=== PATIENT | male | born 1965 | race American Indian/Alaskan Native ===

== ENCOUNTER 2017-04-02 15:48 | Emergency (ER) | payer MEDICAID ==
[2017-04-02] MEDS ORDERED: Dextrose 50% SYRINGE Inj (50 ml) IVP ONE (16:34)
--- NOTE | 2017-04-02 16:37 | ED PDOC ---
HPI: General Adult Time Seen by Provider: 04/02/17 16:34 Chief Complaint (Nursing): Abdominal Pain Chief Complaint (Provider): right groin pain History Per: Patient (51 y/o male h/o DM/coagulopathy/vascular disease s/p procedure right groin (balloon?) for dvt noted despite use on anticoagulants. Patient was d/c from [facility] 03/16. States he has had multiple procedures bilateral legs (fem-pop bypass) for vascular disease. IS on warfarin/eloquis/ plavix currently. Patient notes pain suddenly occurred when he was in car.) Past Medical History Reviewed: Historical Data, Nursing Documentation, Vital Signs Vital Signs: Last Vital Signs Temp 98 F 04/02/17 18:00 Pulse 74 04/02/17 18:00 Resp 20 04/02/17 18:00 BP 134/74 04/02/17 18:00 Pulse Ox 98 04/02/17 19:56 - Medical History PMH: Bronchitis, COPD, HTN - Family History Family History: States: No Known Family Hx - Immunization History Hx Tetanus Toxoid Vaccination: No Hx Influenza Vaccination: No Hx Pneumococcal Vaccination: No - Allergies Allergies/Adverse Reactions: Allergies Allergy/AdvReac Type Severity Reaction Status Date / Time No Known Allergies Allergy Verified 04/02/17 15:59 Review of Systems ROS Statement: Except As Marked, All Systems Reviewed And Found Negative Physical Exam - Reviewed Nursing Documentation Reviewed: Yes Vital Signs Reviewed: Yes - Physical Exam Appears: Positive for: Well, Non-toxic, No Acute Distress Head Exam: Positive for: ATRAUMATIC, NORMAL INSPECTION, NORMOCEPHALIC Skin: Positive for: Normal Color, Warm, DRY Eye Exam: Positive for: EOMI, Normal appearance, PERRL ENT: Positive for: Normal ENT Inspection Neck: Positive for: Normal, Painless ROM Cardiovascular/Chest: Positive for: Regular Rate, Rhythm Respiratory: Positive for: CNT, Normal Breath Sounds Gastrointestinal/Abdominal: Positive for: Normal Exam, Bowel Sounds, Soft Back: Positive for: Normal Inspection Extremity: Positive for: Tenderness (right groin/ no pulsatile mass; no bruit heard), Other (2+ pulse noted DP/PT) Neurologic/Psych: Positive for: Alert, Oriented - Laboratory Results Result Diagrams: 04/02/17 16:38 04/02/17 16:38 - ECG O2 Sat by Pulse Oximetry: 98 - Progress ED Course And Treament: PATIENT COMPLAINT OF CHEST PAIN WHILE IN ULTRASOUND. STATES HE NOTED CHEST PAIN AND LEFT ARM PAIN AT THAT TIME. NOW RESOLVED EKG: NSR NO ECTOPY NO ACUTE CHANGE REVIEWED BY MARIPOSA. ASA 324 MG X 1 DOSE CXR: NAD SEEN BY DR. BIANCHI IN ED. SHE WILL ADMIT UNDER HER CARE FOR EVALUATION OF CHEST PAIN/GROIN PAIN. CTA CHEST/ABD/PELVIS: PENDING DUPLEX ARTERIAL/VENOUS RIGHT LEG: WNL Disposition - Clinical Impression Clinical Impression: Leg pain, Chest pain - Patient ED Disposition Is Patient to be Admitted: Transfer of Care - Disposition Disposition: Transfer of Care Disposition Time: 19:57 Condition: FAIR Patient Signed Over To: Evans Rivers Handoff Comments: pending cta chest/abd/pelvis results
[2017-04-02 16:57] LABS: ALB/GLOB RATIO 1.5 (1.0-2.1); ALKALINE PHOSPHATASE 74 U/L (38-126); ALT/SGPT 72 U/L (21-72); AST/SGOT 42 U/L (17-59); BILIRUBIN,TOTAL 0.6 mg/dl (0.2-1.3); BLOOD UREA NITROGEN 15 mg/dl (9-20); CALCIUM 9.9 mg/dL (8.4-10.2); CARBON DIOXIDE 25 mmol/L (22-30); CHLORIDE 103 mmol/L (98-107); GFR AFRICAN-AMERICAN > 60; GLUCOSE,RANDOM 80 mg/dL (75-110); POTASSIUM 4.3 MMOL/L (3.6-5.0); SODIUM 139 mmol/l (132-148); TOTAL PROTEIN 7.8 G/DL (6.3-8.2)
[2017-04-02 17:02] LABS: BASO # 0.1 K/uL (0.0-0.2); BASO % 1.4 % (0.0-2.0); EOS # 0.1 K/uL (0.0-0.7); EOS % 1.4 % (0.0-4.0); HEMATOCRIT 45.2 % (35.0-51.0); LYMPH # 2.2 K/uL (1.0-4.3); LYMPH % 51.5 % (20.0-40.0); MEAN CELL VOLUME 88.8 fl (80.0-94.0); MEAN CORPUSCULAR HEMOGLOBIN 28.7 pg (27.0-31.0); MEAN CORPUSCULAR HGB CONC 32.3 g/dL (33.0-37.0); MONO # 0.6 K/uL (0.0-0.8); MONO % 14.4 % (0.0-10.0); NEUT # 1.3 K/uL (1.8-7.0); NEUT % 31.3 % (50.0-75.0); NRBC % 0.1 % (0.0-0.0); RED CELL DISTRIBUTION WIDTH 13.8 % (11.5-14.5); WHITE BLOOD COUNT 4.3 K/uL (4.8-10.8)
[2017-04-02 17:09] VITALS: O2SAT 98
--- NOTE | 2017-04-02 17:13 | US ---
Right lower extremity ultrasound. Indication: None available Technique: Duplex ultrasound evaluation of the right lower extremity Comparison: None available Findings: There is normal flow, compressibility, and augmentation of the right common femoral, femoral, and popliteal veins. The right posterior tibial vein was not adequately assessed. The technologist was unable to perform augmentation of the posterior tibial veins as the patient complained of severe chest pain radiating to his left arm in the examination was terminated. Impression: No evidence of deep venous thrombosis in the right lower extremity. The right posterior tibial vein was not adequately assessed. The technologist was unable to perform augmentation of the posterior tibial veins as the patient complained of severe chest pain radiating to his left arm in the examination was terminated. The tallier notified Dr. Longo of the patient's complaints immediately upon return to the ER.
--- NOTE | 2017-04-02 17:46 | RAD ---
HISTORY: CHEST PAIN COMPARISON: None available. TECHNIQUE: Chest, one view. FINDINGS: Multiple external wires and leads project over the chest. LUNGS: No focal consolidation. Please note that chest x-ray has limited sensitivity for the detection of pulmonary masses. PLEURA: No significant pleural effusion identified. No definite pneumothorax . CARDIOVASCULAR: Heart size appears within limits. OSSEOUS STRUCTURES: No acute osseous abnormality identified. VISUALIZED UPPER ABDOMEN: Unremarkable. OTHER FINDINGS: None. IMPRESSION: No focal consolidation, significant pleural effusion, or definite pneumothorax identified.
[2017-04-02] MEDS ORDERED: Sodium Chloride 0.9% 100 ML ONE (18:01)
[2017-04-02] MEDS ORDERED: Iodixanol 320 MG/ML 100 ML BOTTLE IV ONE (18:01)
[2017-04-02 18:51] VITALS: PULSE 74
[2017-04-02] MEDS ORDERED: Dextrose 50% SYRINGE Inj (50 ml) ONE (19:21)
--- NOTE | 2017-04-02 20:23 | CP.PCM.HP ---
History of Present Illness - History of Present Illness History of Present Illness: 51 yo gentleman with a long history of coagulopathy- thrombophilia was being evaluated in the ER for right groin pain when he developed left precordial chest pain radiating down the left arm. 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 He has had 7 procedures on the legs including stenting. Most recently he had balloon angioplasty and stenting of the right leg vasculature on 03/16/17. He is on multiple anticoagulants (see meds below). Aspirin was recently stopped due to rectal bleeding. He has been takin Percocet for leg pains. Vacscular care has been by Dr. Nancy Marin at [place], [place] [phone] DM - II - Hypertension COPD Other surgeries L lower arm fracture , L ankle fracture (ORIF) 2012. 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 Former smoker. No drugs or alcohol problems. Family Hx: One parent and 3 siblings of vascular disease. Present on Admission - Present on Admission Any Indicators Present on Admission: Yes History of DVT/PE: Yes History of Uncontrolled Diabetes: Yes Review of Systems - Review of Systems Systems not reviewed;Unavailable: Other Past Patient History - Past Social History Smoking Status: Former Smoker - CARDIAC Hx Hypertension: Yes - PULMONARY Hx Bronchitis: Yes Hx Chronic Obstructive Pulmonary Disease (COPD): Yes - ENDOCRINE/METABOLIC Hx Diabetes Mellitus Type 2: Yes - HEMATOLOGICAL/ONCOLOGICAL Hx Blood Disorders: Yes (See HPI) Other/Comment: dvt - PSYCHIATRIC Hx Substance Use: No - SURGICAL HISTORY Other/Comment: fem/pop bypass, angiogram, filter rt groin. - ANESTHESIA Hx Anesthesia: Yes Hx Anesthesia Reactions: No Meds Allergies/Adverse Reactions: Allergies Allergy/AdvReac Type Severity Reaction Status Date / Time cheese AdvReac NAUSEA Uncoded 04/02/17 20:30 Physical Exam - Constitutional Appears: No Acute Distress - Head Exam Head Exam: NORMAL INSPECTION - Eye Exam Eye Exam: Normal appearance - ENT Exam ENT Exam: Mucous Membranes Moist Additional comments: upper partial dentue - Neck Exam Neck exam: Positive for: Normal Inspection - Respiratory Exam Respiratory Exam: Clear to Auscultation Bilateral, NORMAL BREATHING PATTERN - Cardiovascular Exam Cardiovascular Exam: REGULAR RHYTHM, +S1, +S2 - GI/Abdominal Exam GI & Abdominal Exam: Soft - Rectal Exam Rectal Exam: Deferred - Exam Exam: Circumcision, NORMAL INSPECTION Additional comments: No testicular masses. - Extremities Exam Extremities exam: Positive for: normal inspection Additional comments: Tender nodularity right groin at arterio-venous triangle. No open lesions, no erythema. No calf tenderness. No edema. Pedal pulses are present right and left. - Back Exam Back exam: NORMAL INSPECTION - Neurological Exam Neurological exam: Alert, CN II-XII Intact, Oriented x3 - Psychiatric Exam Psychiatric exam: Normal Affect, Normal Mood - Skin Skin Exam: Dry, Normal Color, Warm Results - Vital Signs Recent Vital Signs: Last Vital Signs Temp 98 F 04/02/17 18:00 Pulse 74 04/02/17 18:00 Resp 20 04/02/17 18:00 BP 134/74 04/02/17 18:00 Pulse Ox 98 04/02/17 18:00 - Labs Result Diagrams: 04/02/17 16:38 04/02/17 16:38 Labs: Most Recent Lab Values WBC 4.3 K/uL (4.8-10.8) L 04/02/17 16:38 RBC 5.09 Mil/uL (4.40-5.90) 04/02/17 16:38 Hgb 14.6 g/dL (12.0-18.0) 04/02/17 16:38 Hct 45.2 % (35.0-51.0) 04/02/17 16:38 MCV 88.8 fl (80.0-94.0) 04/02/17 16:38 MCH 28.7 pg (27.0-31.0) 04/02/17 16:38 MCHC 32.3 g/dL (33.0-37.0) L 04/02/17 16:38 RDW 13.8 % (11.5-14.5) 04/02/17 16:38 Plt Count 200 K/uL (130-400) 04/02/17 16:38 MPV 10.0 fl (7.2-11.7) 04/02/17 16:38 Neut % (Auto) 31.3 % (50.0-75.0) L 04/02/17 16:38 Lymph % (Auto) 51.5 % (20.0-40.0) H 04/02/17 16:38 Newton % (Auto) 14.4 % (0.0-10.0) H 04/02/17 16:38 Eos % (Auto) 1.4 % (0.0-4.0) 04/02/17 16:38 Baso % (Auto) 1.4 % (0.0-2.0) 04/02/17 16:38 Neut # 1.3 K/uL (1.8-7.0) L 04/02/17 16:38 Lymph # 2.2 K/uL (1.0-4.3) 04/02/17 16:38 Newton # 0.6 K/uL (0.0-0.8) 04/02/17 16:38 Eos # 0.1 K/uL (0.0-0.7) 04/02/17 16:38 Baso # 0.1 K/uL (0.0-0.2) 04/02/17 16:38 PT 14.3 Seconds (9.8-13.1) H 04/02/17 16:38 INR 1.3 (0.9-1.2) H 04/02/17 16:38 APTT 42.0 Seconds (25.6-37.1) H 04/02/17 16:38 Sodium 139 mmol/l (132-148) 04/02/17 16:38 Potassium 4.3 MMOL/L (3.6-5.0) 04/02/17 16:38 Chloride 103 mmol/L (98-107) 04/02/17 16:38 Carbon Dioxide 25 mmol/L (22-30) 04/02/17 16:38 Anion Gap 15 (10-20) 04/02/17 16:38 BUN 15 mg/dl (9-20) 04/02/17 16:38 Creatinine 1.0 mg/dL (0.8-1.5) 04/02/17 16:38 Est GFR ( Amer) > 60 04/02/17 16:38 Est GFR (Non-Af Amer) > 60 04/02/17 16:38 Random Glucose 80 mg/dL (75-110) 04/02/17 16:38 Calcium 9.9 mg/dL (8.4-10.2) 04/02/17 16:38 Total Bilirubin 0.6 mg/dl (0.2-1.3) 04/02/17 16:38 AST 42 U/L (17-59) 04/02/17 16:38 ALT 72 U/L (21-72) 04/02/17 16:38 Alkaline Phosphatase 74 U/L (38-126) 04/02/17 16:38 Troponin I < 0.0120 ng/mL (0.00-0.120) 04/02/17 17:37 Total Protein 7.8 G/DL (6.3-8.2) 04/02/17 16:38 Albumin 4.6 g/dL (3.5-5.0) 04/02/17 16:38 Globulin 3.1 gm/dL (2.2-3.9) 04/02/17 16:38 Albumin/Globulin Ratio 1.5 (1.0-2.1) 04/02/17 16:38 - EKG Data EKG shows normal: Sinus rhythm, QRS complexes, ST-T waves Rate: Normal - Imaging and Cardiology Chest x-ray Status: Image reviewed by me (Normal) Venous US Status: Report reviewed by me (Arterial and venous ultrasounds show no obstruction or clots.) Additional comment: CT angiogram chest, abdomen, pelvis, upper legs done - reports pending. Assessment & Plan (1) Coagulopathy Assessment and Plan: THROMBOPHILIA WITH MULTIPLE VASCULAR COMPLICATIONS HEMATOLOGY CONSULTATION BY RAMY GUNN. Patient will be continued on anticoagulants while blood tests are being done. See orders. VASCULAR SURGICAL CONSULTATION BY DR. Marya WALKER Status: Acute (2) Hypertension Assessment and Plan: WILL CONTINUE USUAL MEDICATIONS. Status: Acute (3) Diabetes mellitus Assessment and Plan: Continue Glucophage 500 mg qam and start low dose insulin coverage. Status: Acute (4) Chest pain Assessment and Plan: NO evidence for CO at this time, but patient is at high risk. Will place on telemetry. CARDIOLOGY CONSULTATION DR. Madison TERRAZAS. (QV) Status: Acute (5) COPD (chronic obstructive pulmonary disease) Assessment and Plan: will give albuterol mdi prn. Status: Acute
--- NOTE | 2017-04-02 20:33 | CP.PCM.CON ---
History of Present Illness - History of Present Illness History of Present Illness: 51 year old male with a history of PAD s/p B/L LE bypass, DM, HTN, admitted with right groin pain with concern for arterial occlusion. The patient is taking plavix and coumadin. He noted to worsening right groin pain which was similar to prior clotting in the past. He notes he also has been having off and on chest pain. 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 Past medical history: PAD s/p B/L LE bypass, DM, HTN, asthma Past surgical history: B/L LE arterial bypass, ankle surgery. Family history: 2 brother, 1 sister with DVT/PE, mother had blood clot Social history: Former tobacco abuse, denies alcohol and illicit drug use. Allergies: NKDA Review of systems: All remaining review of systems including HEENT, cardiovascular, respiratory, gastrintestinal, genitourinary, musculoskeletal, dermatologic, neurologic, and psychiatric are negative unless mentioned in the HPI. Past Patient History - Past Social History Smoking Status: Former Smoker - CARDIAC Hx Hypertension: Yes - PULMONARY Hx Bronchitis: Yes Hx Chronic Obstructive Pulmonary Disease (COPD): Yes - ENDOCRINE/METABOLIC Hx Diabetes Mellitus Type 2: Yes - HEMATOLOGICAL/ONCOLOGICAL Hx Blood Disorders: Yes (See HPI) Other/Comment: dvt - PSYCHIATRIC Hx Substance Use: No - SURGICAL HISTORY Other/Comment: fem/pop bypass, angiogram, filter rt groin. - ANESTHESIA Hx Anesthesia: Yes Hx Anesthesia Reactions: No Meds Allergies/Adverse Reactions: Allergies Allergy/AdvReac Type Severity Reaction Status Date / Time cheese AdvReac NAUSEA Uncoded 04/02/17 20:30 Physical Exam - Head Exam Head Exam: ATRAUMATIC - Eye Exam Eye Exam: Normal appearance - ENT Exam ENT Exam: Mucous Membranes Dry - Respiratory Exam Respiratory Exam: NORMAL BREATHING PATTERN - Cardiovascular Exam Cardiovascular Exam: +S1, +S2 - GI/Abdominal Exam GI & Abdominal Exam: Normal Bowel Sounds - Extremities Exam Extremities exam: Positive for: pedal pulses present - Neurological Exam Neurological exam: Oriented x3 - Psychiatric Exam Psychiatric exam: Normal Affect, Normal Mood - Skin Skin Exam: Warm Results - Vital Signs Recent Vital Signs: Last Vital Signs Temp 98 F 04/02/17 18:00 Pulse 74 04/02/17 18:00 Resp 20 04/02/17 18:00 BP 134/74 04/02/17 18:00 Pulse Ox 98 04/02/17 20:07 - Labs Result Diagrams: 04/02/17 16:38 04/02/17 16:38 Assessment & Plan (1) Peripheral arterial disease Assessment and Plan: agree with aspirin, plavix therapeutic lovenox given subtherapeutic INR pt reports goal INR is 3.0; will redose coumadin 7.mg daily repeat INR in AM vascular surgery evaluation and CTA pending Status: Acute (2) Coagulopathy Assessment and Plan: secondary to anticoagulation rule out inherited thrombophilia given family history and age will check prothrombin gene mutation, factor V leiden mutation and antiphospholipid Ab panel Status: Acute (3) Leukopenia Assessment and Plan: likely benign Thank you for this interesting consult. Status: Acute
[2017-04-02] MEDS ORDERED: Enoxaparin 80 mg Syringe SC SCH (21:00)
--- NOTE | 2017-04-02 21:12 | ED PDOC ---
- Laboratory Results Result Diagrams: 04/02/17 16:38 04/02/17 16:38 - ECG O2 Sat by Pulse Oximetry: 98 - Progress ED Course And Treament: Signed out to me pending CT and US results at 1999. US duplex RUE arterial: No evidence of hemodynamically significant stenosis. CT Angiography Chest With Intravenous Contrast and CT Angiography Abdomen and Pelvis With Intravenous Contrast: No evidence of aortic aneurysm or dissection. Mild aneurysmal dilatation of the left popliteal artery. US duplex RLE vein: No DVT. These radiologic results were given to Dr. Donnelly who is currently in ED evaluating patient. Disposition - Clinical Impression Clinical Impression: Leg pain, Chest pain - POA Present On Arrival: None - Disposition Disposition: Admitted as In-Patient Disposition Time: 21:14 Condition: FAIR
[2017-04-02 21:22] VITALS: BP 139/76; RESP 15; TEMP 98.1
[2017-04-02] MEDS ORDERED: Oxycodone/Acetaminophen 5/325 mg Tab PO PRN (21:23)
[2017-04-02] MEDS ORDERED: Albuterol HFA 90 mcg/actuation (8 g) INH PRN (21:26)
[2017-04-02] MEDS ORDERED: Insulin Regular 100 units/ml SC SCH (23:00)
--- NOTE | 2017-04-03 08:43 | CARD ---
APPROVED REPORT EKG Measurement Heart [id number] <Conclusion> Normal sinus rhythm Normal ECG
--- NOTE | 2017-04-04 05:20 | HP ---
SUBJECTIVE: The patient is a 51-year-old male who was admitted via the emergency room for evaluation of chest pain. He originally was seen by Dr. Donnelly several hours prior to his presentation because of right groin pain and was discharged against medical advice because he did not want to stay. He, however, was brought back to the emergency room by police officers because of having multiple arrest warrants and he has been evaluated for chest pain prior to being taken to senior living. PAST MEDICAL HISTORY: He has a past medical history of thrombophilia with multiple coagulopathies and has had multiple stents placed in at different areas including the right groin which is where he has pain. Mostly recently he had a balloon angioplasty on 03/16/2017. Other medical history is remarkable for diabetes mellitus, hypertension, and COPD. He has a strong family history of thrombophilia in multiple family members. REVIEW OF SYSTEM: Remarkable for recurrent chest pains on and off for the past 2 years, multiple groin pains, and multiple pains in different extremities. 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 PHYSICAL EXAM: GENERAL: The patient is alert, oriented, appears much more comfortable this morning. He is handcuffed to the bed with the police captain senior standing guard. Denies chest pains or shortness of breath. VITAL SIGNS: Blood pressure 137/88, pulse of 66, respiratory rate 18. He is afebrile. O2 sat is 100% on room air. SKIN: Shows fair turgor. HEENT: Pupils equal, reactive to light and accommodation. Mouth shows fair hygiene. JVP flat. LUNGS: Clear. HEART: Regular, no murmurs or gallops. No chest wall tenderness. ABDOMEN: Soft, nontender. No organomegaly. EXTREMITIES: Show no edema or cyanosis, but some mild right groin tenderness. The patient has an ice packing placed over this. CENTRAL NERVOUS SYSTEM: Grossly intact. The patient is alert and oriented x3. LABORATORY DATA: WBC 5.0, hemoglobin 15.4, platelet count of 200,000. Troponin less than 0.012. EKG: Normal sinus rhythm. IMPRESSION: 1. Atypical chest pain. 2. Acute coronary syndrome. 3. History of thrombophilia with multiple stents and groin pains, which is chronic and related to recent angioplasty. 4. History of chronic obstructive pulmonary disease, stable. 5. History of diabetes mellitus and hypertension, stable. PLAN: Cardiac evaluation for clearance prior to being taken to senior living. Psychiatry evaluation also requested by the emergency room team. The patient will be discharged with the police captain senior back to the senior living once cleared by psychiatry and cardiology. Rick Perez MD
--- NOTE | 2017-04-04 09:03 | CT ---
PROCEDURE: CT Angiography Abdomen, and Pelvis with Contrast HISTORY: EVALUATE FOR PE/ PLEASE EVALUATE FOR RT GROIN PAIN COMPARISON: No prior CT or for comparison. Correlation is made with preliminary bilateral lower extremity arterial and venous ultrasound examination also dated 04/02/2017. TECHNIQUE: Technique: CT angiography of the abdomen, and pelvis was performed in the arterial phase of enhancement. Coronal and sagittal reformats, and well as rotating MIP images of the vessels generated at the workstation. Oral contrast was withheld as per referring physician request. Intravenous contrast dose: Visipaque-100 cc Radiation dose: Total exam DLP = 1369 mGy-cm. This CT exam was performed using one or more of the following dose reduction techniques: Automated exposure control, adjustment of the mA and/or kV according to patient size, and/or use of iterative reconstruction technique. FINDINGS: CT ANGIOGRAPHY: ABDOMINAL AORTA:: Appears normal in course caliber and contour with normal intraluminal enhancement. No evidence of aortic dissection or aneurysm. MAJOR AORTIC BRANCHES: Celiac Cardale: Unremarkable. Superior mesenteric artery: Unremarkable. Inferior mesenteric artery: Unremarkable. Renal arteries: Unremarkable. PELVIC ARTERIES: Right Common Iliac: Unremarkable. Right External Iliac: Unremarkable. Right Internal Iliac: Unremarkable. Left Common Iliac: Unremarkable. Left External Iliac: Unremarkable. Left Internal Iliac: Unremarkable. RIGHT LOWER EXTREMITY ARTERIES: Right Common Femoral: Unremarkable. Right Superficial Femoral: Unremarkable. Right Profunda Femoris: Unremarkable. Right Popliteal:Unremarkable. Right Anterior Tibial: Unremarkable. Right Tibioperoneal Trunk: Unremarkable. Right Posterior Tibial: Unremarkable. Right Peroneal: Unremarkable. Right dorsalis pedis : Unremarkable. LEFT LOWER EXTREMITY ARTERIES: Left Common Femoral: Unremarkable. Left Superficial Femoral: Unremarkable. Left Profunda Femoris: Unremarkable. Left Popliteal: Minimal aneurysmal dilatation, 12 mm. Left Anterior Tibial: Unremarkable to the lower tibial level. Left Tibioperoneal Trunk: Unremarkable. Left Posterior Tibial: Unremarkable. To the lower tibial level Left Peroneal: Unremarkable to the lower tibial level. Left Dorsalis pedis: Unremarkable not part of exam. NON-ANGIOGRAPHIC ASPECT OF THE EXAM: LOWER THORAX: Entire thorax was imaged. Limited bilateral basilar dependent atelectasis identified in trace emphysema is in the bilateral upper lobes. No infiltrate pneumothorax or central air rate lesion is appreciated. However, seen image 80 series 2 is a 3 mm posterior 3.2 mm noncalcified solid nodule at the right lower lobe laterally. A 2nd nodule is identified at the left side and at the left below left lower lobe and image 80 series 2 was also solid noncalcified but appears subpleural instead, measuring 3.5 mm. A 3rd nodule is questioned at the right middle lobe subpleural in location and also image 81 measuring 3.5 mm. There is no dominant mass throughout the chest. There is no significant lymphadenopathy. Cardiac size is normal and there is no pleural or pericardial effusion. The thoracic inlet appears unremarkable and there is a small hiatal hernia. LIVER: Unremarkable. No gross lesion or ductal dilatation. GALLBLADDER AND BILE DUCTS: Minimal cholelithiasis identified within the dependent gallbladder. No intrahepatic biliary dilatation. PANCREAS: Unremarkable. No gross lesion or ductal dilatation. SPLEEN: Unremarkable. ADRENALS: Unremarkable. No mass. KIDNEYS AND URETERS: Unremarkable. No hydronephrosis. No solid mass. STOMACH AND BOWEL: Unremarkable. No obstruction. No gross mural thickening. APPENDIX: Normal appendix. PERITONEUM: Unremarkable. No free fluid. No free air. LYMPH NODES: Unremarkable. No enlarged lymph nodes. BLADDER: Appears completely decompressed limiting evaluation of the wall. No pericystic reactive change. REPRODUCTIVE: Unremarkable. BONES: Small bone islands are seen in the right iliac crest as well as left femoral head. OTHER FINDINGS: None. IMPRESSION: 1. No CT evidence of pulmonary embolus. 2. Normal-appearing thoracoabdominal aorta. 3. 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 4. Three pulmonary nodules identified within the lungs for which follow-up chest is advised in 12 months demonstrate stability of this finding. 5. No acute cardiopulmonary, abdominal or pelvis findings as discussed above. 6. Cholelithiasis.
--- NOTE | 2017-04-04 14:39 | US ---
PROCEDURE: Duplex ultrasound of the right lower extremity arteries. HISTORY: leg pain COMPARISON: None available. TECHNIQUE: Grayscale and duplex Doppler evaluation of the right common femoral, superficial femoral, popliteal, posterior tibial and dorsalis pedis arteries was performed.. FINDINGS: COMMON FEMORAL ARTERY: Patent. Maximal flow velocity of 101.8 cm/s. SUPERFICIAL FEMORAL ARTERY:Patent. Maximal flow velocity of 103.6 cm/s. POPLITEAL ARTERY:Patent. Maximal flow velocity of 30.8 cm/s. POSTERIOR TIBIAL ARTERY: Patent. Maximal flow velocity of 41.6 cm/s. DORSALIS PEDIS ARTERY: Patent. Maximal flow velocity of 22.7 cm/s. OTHER FINDINGS: None. IMPRESSION: No evidence of hemodynamically significant stenoses. Concordant results (preliminary interpretation) provided by [facility]. Procedure Completed: 18:05. Preliminary ([facility]) Report: Dictated and Authenticated: 19:55. Final Interpretation: 14:37. April 03, 2017.
== END 2017-04-02 22:15 | disposition left against medical advice (07) ==
LOC: H.ER 15:48 → UNDOADMIN 19:40 → H.ERHOLD 19:40 → UNDODISIN 22:15
DX: R07.9 Chest pain, unspecified (principal); M79.609 Pain in unspecified limb; E11.9 Type 2 diabetes mellitus without complications; I10 Essential (primary) hypertension; I99.9 Unspecified disorder of circulatory system; D68.9 Coagulation defect, unspecified

== ENCOUNTER 2017-04-02 23:45 | Observation (INO) | payer MEDICAID ==
--- NOTE | 2017-04-03 00:07 | ED PDOC ---
HPI: General Adult Chief Complaint (Nursing): Medical Clearance Additional Complaint(s): 51M brought in by [employer] police after police were informed by significant other that patient had an outstanding warrant. Patient then had c/o dizziness and was brought in by the police for medical and psych clearance. Of note, patient signed out AMA approximately an hour earlier and had been seen by Dr Donnelly who felt patient should be admitted to Telemetry and further evaluated by cardiology. In addition, Dr Fuchs also evaluated patient for underlying hypercoagulable condition. PMH: Thrombophilia, DM, HTN, COPD, PAD ALL: NKDA ANURADHA: Lovenox 90 mg sq bid Plavix 75mg qam Coumadin 7.5 mg qhs Labetalol 100mg bid Clonidine 0.2mg tid Amlodipine 10mg qd Lisinopril 10mg qd Spironolactone 50mg qd Glucophage 500mg qd Spiriva inhaler prn Albuterol MDI prn Gabapentin 600mg bid Percocet 10/325 i q4h prn pain Past Medical History Vital Signs: Last Vital Signs Temp 36.6 C 04/02/17 23:46 Pulse 78 04/02/17 23:46 Resp 16 04/02/17 23:46 BP 138/99 H 04/02/17 23:46 Pulse Ox 98 04/03/17 00:46 - Medical History PMH: Bronchitis, COPD, HTN - Family History Family History: States: CAD - Immunization History Hx Tetanus Toxoid Vaccination: No Hx Influenza Vaccination: No Hx Pneumococcal Vaccination: No - Home Medications Home Medications: Ambulatory Orders Medication Instructions Recorded Clonidine HCl [Catapres] 0.2 mg PO BID 04/02/17 Clopidogrel [Plavix] 75 mg PO QID 04/02/17 Enoxaparin [Lovenox] 90 mg SQ BID 04/02/17 Gabapentin [Neurontin] 600 mg PO BID 04/02/17 Labetalol [Trandate] 100 mg PO BID 04/02/17 Lisinopril [Zestril] 10 mg PO QID 04/02/17 MetFORMIN [glucOPHAGE] 1,000 mg PO Q4 04/02/17 Tiotropium [Spiriva] 18 mcg IH DAILY 04/02/17 Warfarin [Coumadin] 7.5 mg PO DAILY 04/02/17 amLODIPine [Norvasc] 10 mg PO QID 04/02/17 cloNIDine 0.2 mg/24 hr 0.2 mg DAILY 04/02/17 [catapres-TTS2 0.2 mg/24 hr] - Allergies Allergies/Adverse Reactions: Allergies Allergy/AdvReac Type Severity Reaction Status Date / Time cheese AdvReac NAUSEA Uncoded 04/02/17 20:30 Review of Systems ROS Statement: Except As Marked, All Systems Reviewed And Found Negative Physical Exam - Reviewed Vital Signs Reviewed: Yes - Physical Exam Appears: Positive for: Well, Non-toxic, No Acute Distress Head Exam: Positive for: ATRAUMATIC, NORMAL INSPECTION Skin: Positive for: Normal Color, Warm Eye Exam: Positive for: EOMI, PERRL Cardiovascular/Chest: Positive for: Regular Rate, Rhythm. Negative for: JVD Respiratory: Positive for: Normal Breath Sounds. Negative for: Rales, Wheezing Pulses-Dorsalis Pedis (L): 2+ Pulses-Dorsalis Pedis (R): 2+ Pulses-Femoral (L): 2+ Pulses-Femoral (R): 2+ Pulses-Post. Tibialis (L): 2+ Pulses-Post. Tibialis (R): 2+ Gastrointestinal/Abdominal: Positive for: Bowel Sounds, Soft. Negative for: Tenderness - ECG O2 Sat by Pulse Oximetry: 98 Medical Decision Making Medical Decision Making: Spoke with Dr Donnelly who recommends patient continue with cardiology evaluation prior to release to the police. Dr Perez contacted for admission and is agreeable. - EKG - Serial Troponins - Cardiology Consult Disposition - Clinical Impression Clinical Impression: Chest pain - Patient ED Disposition Is Patient to be Admitted: Yes Discussed With : Rick Perez Doctor Will See Patient In The: Hospital Counseled Patient/Family Regarding: Studies Performed, Diagnosis - Disposition Disposition Time: 00:38 Condition: STABLE - Pt Status Changed To: Hospital Disposition Of: Observation
[2017-04-03] MEDS ORDERED: Albuterol HFA 90 mcg/actuation (8 g) INH PRN (01:29)
[2017-04-03] MEDS ORDERED: Glucagon Recombinant 1 mg Inj IM PRN (01:37)
[2017-04-03] MEDS ORDERED: Dextrose 50% SYRINGE Inj (50 ml) IV PRN (01:37)
[2017-04-03 05:14] VITALS: O2SAT 100
[2017-04-03] MEDS ORDERED: Pneumococcal 23-Valent Vaccine IM ONE (06:00)
[2017-04-03] MEDS ORDERED: Insulin Regular 100 units/ml SC SCH (07:30)
[2017-04-03 08:08] VITALS: BP 137/88; PULSE 66; RESP 18; TEMP 97.9
[2017-04-03 08:23] LABS: HEMOGLOBIN 15.4 g/dL (12.0-18.0); MEAN CORPUSCULAR HEMOGLOBIN 28.9 pg (27.0-31.0); MEAN CORPUSCULAR HGB CONC 32.9 g/dL (33.0-37.0); RBC 5.33 Mil/uL (4.40-5.90); RED CELL DISTRIBUTION WIDTH 13.6 % (11.5-14.5)
--- NOTE | 2017-04-03 08:40 | CARD ---
APPROVED REPORT EKG Measurement Heart [id number] <Conclusion> Normal sinus rhythm Normal ECG
[2017-04-03 08:53] LABS: INR 1.2 (0.9-1.2); PROTHROMBIN TIME 13.5 Seconds (9.8-13.1)
[2017-04-03] MEDS ORDERED: Enoxaparin 80 mg Syringe SC SCH (09:00)
--- NOTE | 2017-04-03 10:04 | CP.PCM.DIS ---
Provider - Provider Date of Admission: 04/03/17 00:25 Attending physician: Rick Perez MD Time Spent in preparation of Discharge (in minutes): 35 Diagnosis - Discharge Diagnosis (1) COPD (chronic obstructive pulmonary disease) Status: Acute (2) Chest pain Status: Acute (3) Coagulopathy Status: Acute (4) Diabetes mellitus Status: Acute (5) Hypertension Status: Acute (6) Leg pain Status: Acute Hospital Course - Lab Results Lab Results: Most Recent Lab Values WBC 5.0 K/uL (4.8-10.8) 04/03/17 06:00 RBC 5.33 Mil/uL (4.40-5.90) 04/03/17 06:00 Hgb 15.4 g/dL (12.0-18.0) 04/03/17 06:00 Hct 46.9 % (35.0-51.0) 04/03/17 06:00 MCV 88.0 fl (80.0-94.0) 04/03/17 06:00 MCH 28.9 pg (27.0-31.0) 04/03/17 06:00 MCHC 32.9 g/dL (33.0-37.0) L 04/03/17 06:00 RDW 13.6 % (11.5-14.5) 04/03/17 06:00 Plt Count 200 K/uL (130-400) 04/03/17 06:00 PT 13.5 Seconds (9.8-13.1) H 04/03/17 06:00 INR 1.2 (0.9-1.2) 04/03/17 06:00 POC Glucose (mg/dL) 92 mg/dL (65-110) 04/03/17 04:41 Troponin I < 0.0120 ng/mL (0.00-0.120) 04/03/17 06:00 - Hospital Course Hospital Course: CHEST PAIN RESOLVED CARDIAC ENZYMES AND EKG-UNREMARKABLE Discharge Exam - Head Exam Head Exam: ATRAUMATIC, NORMAL INSPECTION - Eye Exam Eye Exam: EOMI, Normal appearance, PERRL Pupil Exam: NORMAL ACCOMODATION, PERRL - GI/Abdominal Exam GI & Abdominal Exam: Normal Bowel Sounds - Rectal Exam Rectal Exam: NORMAL INSPECTION - Neurological Exam Neurological exam: Alert, CN II-XII Intact, Normal Gait, Oriented x3, Reflexes Normal - Psychiatric Exam Psychiatric exam: Normal Affect, Normal Mood - Skin Skin Exam: Dry, Intact, Normal Color, Warm Discharge Plan - Follow Up Plan Condition: STABLE Disposition: HOME/ ROUTINE Patient education suggested?: Yes Additional Instructions: CASE DISCUSSED WITH PSYCHIATRIST-DR HERRERA-NO [facility] INTERVENTION NEEDED MEDICALLY CLEARED FOR TRANSFER TO [facility]
[2017-04-03 10:15] LABS: ALB/GLOB RATIO 1.4 (1.0-2.1); ALBUMIN 4.6 g/dL (3.5-5.0); ALT/SGPT 65 U/L (21-72); AST/SGOT 44 U/L (17-59); BLOOD UREA NITROGEN 11 mg/dl (9-20); CALCIUM 10.3 mg/dL (8.4-10.2); GFR AFRICAN-AMERICAN > 60; GFR NON-AFRICAN AMERICAN > 60
--- NOTE | 2017-04-03 10:28 | CP.PCM.CON ---
History of Present Illness - History of Present Illness History of Present Illness: This 51-year-old - [place] male, a diabetic quit smoking 3 years back was hospitalized after complaining of abrupt groin pain. He has a history of severe peripheral arterial disease requiring multiple procedures for catheter-based interventions for claudication and last year underwent bypass procedures on both lower extremities. The patient is on multiple anticoagulations including Lovenox twice a day and Plavix. Aspirin was discontinued last year for uncertain reasons. He denies any episode of typical anginal episodes brought on by physical activity but, has experienced intermittent chest discomfort quite unconnected to any physical activity. His physical activity is significantly restricted because of peripheral arterial disease. He has never experienced a myocardial infarction and denies any symptoms of congestive cardiac failure. He has not undergone any stress test or coronary angiography. The patient experienced a brief episode of left pectoral ache yesterday while in emergency room which resolved in a matter of 5-10 minutes and was not accompanied by any radiation or nausea or perspiration or sudden shortness of breath. On examination this is a pleasant young -[place] male quite alert awake over and afebrile and free of any discomfort. Breeds at 14-16 breaths per minute and can carry on conversation. Has a heart rate of 70 bpm regular and a blood pressure of 124/74 mmHg in the left upper extremity. His jugular venous pressure was not elevated there was no edema hour his lower extremity the pedal pulses were not palpable. Scars of femoropopliteal bypass procedures were evident on both lower extremities. Estimated is were warm nailbeds were pink there was no central or peripheral cyanosis. The apex was in the fifth space the first and second heart sounds are normal there was no murmur no gallop no rales his abdomen was soft liver and spleen are not palpable there were no abdominal bruits His electro-cardiogram showed sinus rhythm with a normal EKG pattern onto conjugative occasions in the emergency room. His lab data shows normal troponins the rest of his labs were noted. IMPRESSION: Atypical chest pain. Evidence of severe bilateral peripheral arterial disease. Diabetes mellitus. Hypertension. The patient is stable from cardiac arrest her point of view and there is no evidence of myocardial ischemia. I have recommended that the patient should discuss stress testing to evaluate for possible coronary artery disease given the severity of his peripheral arterial disease. The patient is stable to be discharged. Past Patient History - Past Medical History & Family History Past Medical History?: Yes - Past Social History Smoking Status: Former Smoker - CARDIAC Hx Hypertension: Yes - PULMONARY Hx Bronchitis: Yes Hx Chronic Obstructive Pulmonary Disease (COPD): Yes - ENDOCRINE/METABOLIC Hx Endocrine Disorders: Yes (dm) - HEMATOLOGICAL/ONCOLOGICAL Hx Blood Disorders: Yes (See HPI) - MUSCULOSKELETAL/RHEUMATOLOGICAL Hx Falls: No - PSYCHIATRIC Hx Substance Use: No - SURGICAL HISTORY Other/Comment: fem/pop bypass, angiogram, filter rt groin. - ANESTHESIA Hx Anesthesia: Yes Hx Anesthesia Reactions: No Meds Allergies/Adverse Reactions: Allergies Allergy/AdvReac Type Severity Reaction Status Date / Time cheese AdvReac NAUSEA Uncoded 04/02/17 20:30 - Medications Medications: Current Medications Albuterol (Ventolin Hfa 90 Mcg/Actuation (8 G)) 2 puff INH RQ4 PRN PRN Reason: Shortness of Breath Aspirin (Ecotrin) 81 mg PO DAILY [facility] Last Admin: 04/03/17 08:25 Dose: 81 mg Clonidine HCl (Catapres-Tts2 0.2 Mg/24 Hr) 1 patch TD Q7D [facility] Last Admin: 04/03/17 03:04 Dose: 1 patch Clonidine HCl (Catapres) 0.1 mg PO BID [facility] Last Admin: 04/03/17 08:25 Dose: 0.1 mg Clopidogrel Bisulfate (Plavix) 75 mg PO DAILY [facility] Last Admin: 04/03/17 08:26 Dose: 75 mg Dextrose (Dextrose 50% Inj) 0 ml IV STAT PRN; Protocol PRN Reason: Hyglycemia Protocol Dextrose (Glutose 15) 0 gm PO ONCE PRN; Protocol PRN Reason: Hypoglycemia Protocol Gabapentin (Neurontin) 600 mg PO BID [facility] Last Admin: 04/03/17 08:25 Dose: 600 mg Glucagon (Glucagen Diagnostic Kit) 0 mg IM STAT PRN; Protocol PRN Reason: Hypoglycemia Protocol Insulin Human Regular (Humulin R) 0 units SC ACHS [facility] PRN Reason: Protocol Last Admin: 04/03/17 06:52 Dose: Not Given Labetalol HCl (Trandate) 100 mg PO BID [facility] Last Admin: 04/03/17 08:24 Dose: 100 mg Lisinopril (Zestril) 10 mg PO DAILY [facility] Last Admin: 04/03/17 08:26 Dose: 10 mg Metformin HCl (Glucophage) 500 mg PO BRK [facility] Last Admin: 04/03/17 08:25 Dose: 500 mg Spironolactone (Aldactone) 50 mg PO DAILY [facility] Last Admin: 04/03/17 08:26 Dose: 50 mg Warfarin Sodium (Coumadin) 7.5 mg PO QD5 [facility] PRN Reason: Protocol Stop: 04/03/17 17:01 Results - Vital Signs Recent Vital Signs: Last Vital Signs Temp 97.9 F 04/03/17 08:08 Pulse 66 04/03/17 09:00 Resp 18 04/03/17 08:08 BP 137/88 04/03/17 08:26 Pulse Ox 100 04/03/17 08:08 - Labs Result Diagrams: 04/03/17 06:00 04/03/17 06:00 Labs: Laboratory Results - last 24 hr 04/03/17 04/03/17 04/03/17 00:50 01:08 04:41 WBC RBC Hgb Hct MCV MCH MCHC RDW Plt Count PT INR Sodium Potassium Chloride Carbon Dioxide Anion Gap BUN Creatinine Est GFR ( Amer) Est GFR (Non-Af Amer) POC Glucose (mg/dL) 104 92 Random Glucose Calcium Total Bilirubin AST ALT Alkaline Phosphatase Troponin I < 0.0120 Total Protein Albumin Globulin Albumin/Globulin Ratio 04/03/17 04/03/17 04/03/17 06:00 06:00 06:00 WBC 5.0 RBC 5.33 Hgb 15.4 Hct 46.9 MCV 88.0 MCH 28.9 MCHC 32.9 L RDW 13.6 Plt Count 200 PT 13.5 H INR 1.2 Sodium Potassium Chloride Carbon Dioxide Anion Gap BUN Creatinine Est GFR ( Amer) Est GFR (Non-Af Amer) POC Glucose (mg/dL) Random Glucose Calcium Total Bilirubin AST ALT Alkaline Phosphatase Troponin I < 0.0120 Total Protein Albumin Globulin Albumin/Globulin Ratio 04/03/17 06:00 WBC RBC Hgb Hct MCV MCH MCHC RDW Plt Count PT INR Sodium 141 Potassium 4.4 Chloride 108 H Carbon Dioxide 21 L Anion Gap 16 BUN 11 Creatinine 0.9 Est GFR ( Amer) > 60 Est GFR (Non-Af Amer) > 60 POC Glucose (mg/dL) Random Glucose 90 Calcium 10.3 H Total Bilirubin 0.8 AST 44 ALT 65 Alkaline Phosphatase 79 Troponin I Total Protein 7.9 Albumin 4.6 Globulin 3.3 Albumin/Globulin Ratio 1.4
[2017-04-05 22:11] LABS: CARDIOLIPIN AB (IGA) <11 APL (<=11); CARDIOLIPIN AB (IGG) <14 GPL (<=14)
[2017-04-05 22:41] LABS: PHOSPHATIDYLSERINE AB IGG 49 U/mL (<10); PHOSPHATIDYLSERINE AB IGM <25 U/mL (<25)
[2017-04-06 06:19] LABS: B2 GLYCOPROTEIN I AB(IGA) <9 SAU (<=20); B2 GLYCOPROTEIN I AB(IGG) <9 SGU (<=20); B2 GLYCOPROTEIN I AB(IGM) <9 SMU (<=20); CARDIOLIPIN AB (IGM) <12 MPL (<=12); PHOSPHATIDYLSERINE AB IGA <20 U/mL (<20)
== END 2017-04-03 11:50 ==
LOC: H.ER 23:45 → H.ERHOLD 04-03 00:25 → H.TEL 04-03 02:30
PROVIDERS: ADMIT Internal Medicine Pulmonary Disease; ATTEND Internal Medicine Pulmonary Disease
DX: R07.89 Other chest pain (principal); J44.9 Chronic obstructive pulmonary disease, unspecified; D68.9 Coagulation defect, unspecified; E11.9 Type 2 diabetes mellitus without complications; I10 Essential (primary) hypertension; I73.9 Peripheral vascular disease, unspecified; Z79.01 Long term (current) use of anticoagulants; Z79.899 Other long term (current) drug therapy; Z87.891 Personal history of nicotine dependence; Z79.84 Long term (current) use of oral hypoglycemic drugs; M79.606 Pain in leg, unspecified; Z23 Encounter for immunization